=== PATIENT | female | born 1975 | race Caucasian/White ===

== ENCOUNTER 2019-02-12 10:41 | Emergency (ER) | payer OTHER ==
[~2019-02-12] VITALS: Ht 162.6 cm; Wt 80.7 kg
--- NOTE | 2019-02-12 10:46 | NUR ---
Patient ambulated to bed 5. RN evaluating patient at bedside.
[2019-02-12 10:49] VITALS: BP 148/88
--- NOTE | 2019-02-12 10:53 | NUR ---
Dr. Guzman evaluating patient at bedside.
[2019-02-12] MEDS ORDERED: IBUPROFEN 400 MG TAB PO ONE (11:00)
--- NOTE | 2019-02-12 11:12 | NUR ---
PT WAS MEDICATED WITH MOTRIN PER MD ORDER.
[2019-02-12 12:14] VITALS: BP 112/75
== END 2019-02-12 12:11 | disposition home or self-care (01) ==
LOC: MED 10:41
DX: M54.40 Lumbago with sciatica, unspecified side (principal); R03.0 Elevated blood-pressure reading, without diagnosis of hypertension
CPT/HCPCS: 73502; 81002; 81025; 99283

== ENCOUNTER 2021-11-23 18:15 | Emergency (ER) | payer OTHER ==
[~2021-11-23] VITALS: Ht 165.1 cm; Wt 87.1 kg
[2021-11-23 18:31] VITALS: BP 130/96
[2021-11-23 21:20] LABS: BASOPHILS % (AUTO) 0.7 % (0.0-2.0); EOSINOPHILS # (AUTO) 0.2 K/uL (0-0.4); EOSINOPHILS % (AUTO) 2.2 % (0.0-4.0); HEMATOCRIT 43.5 % (36-48); HEMOGLOBIN 14.3 g/dL (12.0-16.0); LYMPHOCYTES # (AUTO) 2.2 K/uL (2.5-16.5); MEAN CORPUSCULAR HEMOGLOBIN 30 pg (27-31); MEAN CORPUSCULAR HGB CONC 33 g/dL (33-37); MEAN CORPUSCULAR VOLUME 90.7 fL (80-94); MONOCYTES # (AUTO) 0.5 K/uL (0.8-1.0); MONOCYTES % (AUTO) 6.6 % (1.7-9.3); NEUTROPHILS # (AUTO) 4.4 K/uL (1.8-7.7); NEUTROPHILS % (AUTO) 60.5 % (42.2-75.2); PLATELET COUNT (AUTO) 306 K/uL (140-450); RED BLOOD CELL COUNT(AUTO) 4.79 MIL/uL (4.20-5.40); WHITE BLOOD COUNT (AUTO) 7.2 K/uL (4.8-10.8)
[2021-11-23 21:55] LABS: ALBUMIN 3.8 g/dL (3.4-5.0); ANION GAP 12.2 (8-16); ASPARTATE AMINOTRANSFERASE 16 U/L (15-37); CARBON DIOXIDE 26.5 mmol/L (21-32); CHLORIDE 105 mmol/L (98-107); GFR ARICAN-AMERICAN 77 mL/min (>90); GLUCOSE 94 mg/dL (74-106); POTASSIUM 4.7 mmol/L (3.5-5.1); SODIUM SERUM 139 mmol/L (136-145); TOTAL BILIRUBIN 0.2 mg/dL (0.0-1.0); UREA NITROGEN, BLOOD 17 mg/dL (7-18)
[2021-11-24] MEDS ORDERED: NAPR-54 PO (00:08)
[2021-11-24 00:22] VITALS: BP 132/75
== END 2021-11-24 00:23 | disposition home or self-care (01) ==
LOC: MED 18:15
DX: R07.89 Other chest pain (principal)
CPT/HCPCS: 36415; 71045; 80053; 84484; 85025; 93005; 99285